=== PATIENT | male | born 1975 | race Caucasian/White ===

== ENCOUNTER 2022-06-03 02:52 | Emergency (ER) | payer SELFPAY ==
[~2022-06-03] VITALS: Ht 177.8 cm; Wt 93.2 kg
[2022-06-03 02:55] VITALS: BP 140/93
== END 2022-06-03 03:52 | disposition home or self-care (01) ==
LOC: ER 02:52
DX: S00.81XA Abrasion of other part of head, initial encounter (principal); S60.519A Abrasion of unspecified hand, initial encounter; X58.XXXA Exposure to other specified factors, initial encounter; Y93.89 Activity, other specified; Y92.89 Other specified places as the place of occurrence of the external cause; Y99.8 Other external cause status
CPT/HCPCS: 93005; 99283